=== PATIENT | female | born 1980 | race Caucasian/White ===

== ENCOUNTER 2017-09-18 15:45 | Emergency (ER) | payer BC ==
[~2017-09-18] VITALS: Ht 177.8 cm; Wt 122.5 kg
[~2017-09-18 15:45] MED LIST: IBUPROFEN800 MG PO; NORCO 5-325 TA1 EACH PO; NORCO 7.5-3251 EACH PO; PENICILLIN V P500 MG PO; PERCOCET 10-321 EACH PO; PERCOCET 5-3251 EACH PO; ULTRAM50 MG PO
[2017-09-18] MEDS ORDERED: VALTREX1000 MG PO (16:11)
[2017-09-18] MEDS ORDERED: CILOXAN5 ML OD (16:11)
== END 2017-09-18 16:26 | disposition home or self-care (01) ==
LOC: ED 15:45
DX: H10.9 Unspecified conjunctivitis (principal); F17.200 Nicotine dependence, unspecified, uncomplicated; Z88.2 Allergy status to sulfonamides; Z79.2 Long term (current) use of antibiotics
CPT/HCPCS: 99283

== ENCOUNTER 2019-01-27 02:30 | Emergency (ER) | payer BC ==
[~2019-01-27] VITALS: Ht 180.3 cm; Wt 122.5 kg
[~2019-01-27 02:30] MED LIST changes: +CILOXAN5 ML OD; +VALTREX1000 MG PO
== END 2019-01-27 04:55 | disposition home or self-care (01) ==
LOC: ED 02:30
DX: N83.202 Unspecified ovarian cyst, left side (principal); F17.200 Nicotine dependence, unspecified, uncomplicated; Z88.2 Allergy status to sulfonamides
CPT/HCPCS: 74177; 80053; 81001; 83690; 84703; 85025; 99284-25; J1885; Q9967

== ENCOUNTER 2022-01-22 04:05 | Emergency (ER) | payer BC ==
[~2022-01-22] VITALS: Ht 152.4 cm; Wt 122.5 kg
[2022-01-22] MEDS ORDERED: HYDROCODON-ACE1 EA10 PO (06:41)
[2022-01-22] MEDS ORDERED: ONDANSETRON ODT8 MG PO (06:41)
== END 2022-01-22 07:10 | disposition home or self-care (01) ==
LOC: ED 04:05
DX: K80.50 Calculus of bile duct without cholangitis or cholecystitis without obstruction (principal); J45.909 Unspecified asthma, uncomplicated; F17.200 Nicotine dependence, unspecified, uncomplicated; Z88.2 Allergy status to sulfonamides
CPT/HCPCS: 36415; 74177; 80053; 81001; 83690; 84703; 85025; 87088; A9270; J1885; J2270; J2405; J7030; Q9967